=== PATIENT | female | born 1955 | race African-American/Black ===

== ENCOUNTER 2017-05-11 21:09 | Emergency (ER) | payer BC ==
[~2017-05-11] VITALS: Ht 165.1 cm; Wt 70.0 kg
[2017-05-11 22:15] VITALS: BP 160/81
[2017-05-11] MEDS ORDERED: ACETAMINOPHEN 500MG TABLET PO ONE (22:15)
== END 2017-05-11 22:45 | disposition home or self-care (01) ==
LOC: ER 21:09
DX: F41.0 Panic disorder [episodic paroxysmal anxiety] (principal); I10 Essential (primary) hypertension; R20.2 Paresthesia of skin; R07.89 Other chest pain; R51 Headache; Z90.10 Acquired absence of unspecified breast and nipple
CPT/HCPCS: 93005; 99283